=== PATIENT | female | born 1950 | race Caucasian/White ===

== ENCOUNTER 2019-05-12 05:58 | Observation (INO) | payer OTHER ==
[~2019-05-12] VITALS: Ht 165.1 cm; Wt 100.5 kg
[2019-05-12 06:29] VITALS: BP 145/72
[2019-05-12 07:01] VITALS: BP 145/72
[2019-05-12] MEDS ORDERED: LISINOPRIL40 MG PO (11:23)
[2019-05-12] MEDS ORDERED: AMLODIPINE BESY10 M2 PO (11:23)
[2019-05-12] MEDS ORDERED: ASPIR 8181 MG PO (11:23)
[2019-05-12] MEDS ORDERED: FISH OIL 1,0001 EAC1 PO (11:23)
[2019-05-12] MEDS ORDERED: ZOCOR20 MG PO (11:27)
[2019-05-12] MEDS ORDERED: PLAQUENIL200 MG PO (11:27)
[2019-05-12] MEDS ORDERED: PEPCID20 MG PO (11:27)
[2019-05-12] MEDS ORDERED: AZULFIDINE500 MG PO (11:27)
[2019-05-12] MEDS ORDERED: ESTRACE1 MG PO (11:28)
[2019-05-12] MEDS ORDERED: SOMA350 MG PO (11:28)
[2019-05-12] MEDS ORDERED: LYRICA75 M1 PO (11:28)
[2019-05-12] MEDS ORDERED: DIPHENHYDRAMINE50 MG PO (11:28)
[2019-05-12] MEDS ORDERED: NOR10T PO (11:28)
[2019-05-12] MEDS ORDERED: GLUCOTEN CAPLE1 EACH PO (11:29)
[2019-05-12] MEDS ORDERED: ECHINACEA400 MG PO (11:29)
--- NOTE | 2019-05-12 12:54 | NUR ---
RECEIVED PATIENT FROM RECOVERY, AWAKE/ALERT, REPORT PAIN 4/10 TO RT KNEE. RT KNEE INCISION COVER WITH PERINEO DRESSING AND POLAR CARE ON TOP. NO BLEEDING NOTED, RLLE ELEVATED ON PILLOWS. IV TO RH INTACT AND SL NOTED. PATIENT ABLE TO WIGGLES TOES TO RLE. PULSES STRONG. CALL LIGHT WITHIN REACH. FAMILY MEMBERS AT BEDSIDE, PREOP DEPART. BRINGS PATIENT BELONGINGS PLACE IN CLOSE NEST TO PATIENT.
[2019-05-12 13:10] VITALS: BP 132/68
--- NOTE | 2019-05-12 13:17 | NUR ---
PATIENT SAT UP IN BED EATING, TORADOL 15MG IVP GIVEN TO RH IV PATENT. PT IS HERE TO GET PATIENT UP TO BATHROOM. PATIENT DON'T WANT BEDPAN.
--- NOTE | 2019-05-12 13:51 | NUR ---
PATIENT UP WITH PT TO BATHROOM, VOIDED W/O DIFFICULTY. PATIENT AMBULATED WITH PT IN HALLWAY W/ WALKER MORE 30 FT AND TOLERATED. PAIN IS 2/10. CONT TO MONITOR.
--- NOTE | 2019-05-12 14:55 | NUR ---
PATIENT RESTING IN BED NO COMPLAIN AT THIS TIME, GAVE WARM BLANKET PER REQUEST. ANCEF 2GM IVPB INFUSING TO RH IV PATENT, IVF NS AT 80ML/HR CONTINUOUS ORDERED. CALL LIGHT WITHIN REACH. NEEDS MET.
--- NOTE | 2019-05-12 16:00 | NUR ---
ASSISTING PATIENT TO BATHROOM WITH WALKER MIN ASSIST PATIENT'S GAIT VERY STEADY AND TOLERATED WELL, BACK TO BED PATIENT WANT TO SIT UP AT SIDE OF BED FOE AWHILE. FRIEND AT BEDSIDE. INSTRUCT PATIENT TO CALL WHEN READY TO GO BACK TO BED.
[2019-05-12 17:15] VITALS: BP 136/54
--- NOTE | 2019-05-12 18:10 | NUR ---
ASSISTING PATIENT UP TO BATHROOM AND BACK TO BED, VOIDED. MEDICATED FOR 5/10 PAIN TO RLE WITH NORCO 2 TABS PO. BLADDER SCAN PERFORMED 108ML RESIDUAL AFTER VOID. CHANGE ICE TO [facility]. BLE ELEVATED. FAMILY MEMBERS AT BEDSIDE, CONT TO MONITOR.
[2019-05-12 19:50] VITALS: BP 129/50
--- NOTE | 2019-05-12 20:18 | NUR ---
PT IS A/O X4. PT BREATHING IS EVEN AND UNLABORED. NO RESP DISTRESS NOTED. PT LAST BOWEL MOVEMENT WAS ON 05/11 AND HAS VOIDED.PT BOWEL SOUNDS ARE ACTIVE. PT COMPLAINS OF A PAIN OF 2/10 AT THIS TIME. PT WILL RECIEVE MED FOR THIS. 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 DRESSING TO SURGICAL SITE IS INTACT AND DRY, NO DRAINAGE NOTED. PT HAS POLAR ICE TO SURGICAL WOUND, BUCKET OF ICE CHANGED EARLIER BY AM NURSE. PT IS ABLE TO WIGGLE TOES.PT HAS BLE NERVE DAMAGE. PT PUSLES ARE [place].PT HAS CHRONIC NUMBNESS TO THE BLE , STATES SENSATION OF SOARNESS AND TINGLING. WILL CONTINUE TO MONITOR.
--- NOTE | 2019-05-12 20:22 | NUR ---
PATIENT ASSISTED OOB TO THE BATHROOM FOR HER NECESSITIES, AMBULATED WITH WALKER, TOLERATED WITH SLOW STEADY GAIT.
--- NOTE | 2019-05-12 21:21 | NUR ---
SCEDULED MEDS GIVEN. PT INFORMED OF EACH MED ACTION PRIOR TOOK PILLS WELL.
[2019-05-12 21:25] VITALS: BP 120/53
--- NOTE | 2019-05-12 23:16 | NUR ---
ASSISTED OOB TO THE BATHROOM EARLIER WITH 2 PERSON ASSIST, AMBULATED WITH AID OF WALKER WITH SLOW STEADY GAIT, VOIDED WITH OUT DIFF ASSISTED BACK AFTERWARDS, ELEVATED RT LEG ON A PILLOW, POLAR CONTAINED REFILLED WITH ICE. PATIENT COMPLAINED OF RT KNEE PAIN RATED AT 4/10 WILL MONITOR.
--- NOTE | 2019-05-12 23:28 | NUR ---
PATIENT COMPLAINED OF RT KNEE PAIN RATED AT 7-8/10 THROBBING . MEDICATED PRN. MADE COMFORTABLE IN BED . WILL MONITOR EFFECTIVENESS IF PAIN MED.
--- NOTE | 2019-05-13 02:30 | NUR ---
ASSISTED OUT OF BED TO THE BATHROOM WITH WALKER. VOIDED AND ASSISTED BACK.
--- NOTE | 2019-05-13 03:54 | NUR ---
PT IS AWAKE WITH INTERVALS OF SLEEP. PT RESPONDS TO VERBAL COMMANDS. PT IS C/O OF PAIN, WILL MEDICATE PER MD ORDER. WILL CONTINUE TO MONITOR.
--- NOTE | 2019-05-13 04:18 | NUR ---
PT C/O PAIN 06/10. PT RECIEVED DILAUDID X1. WILL REASSES.
--- NOTE | 2019-05-13 05:35 | NUR ---
PT IS SLEPT THROUGH SHORT INTERVALS OF THE NIGHT, PT C/O OF NOT BEING ABLE TO SLEEP. PT WAS C/O OF PAIN AT SURGICAL SITE, MEDS WERE GIVEN. PT RECEIVED DILAUDID X2. PT BREATHING IS EVEN AND UNLABORED. PT IS ABULATORY WITH WALKER. IV ON RH CDI. PT IS COOPERATIVE WITH NURSING CARE.
--- NOTE | 2019-05-13 05:56 | NUR ---
PT RECEIVED 6 AM MED. PT TOLERATED WELL TO MEDICATION ADMINISTRATION.
[2019-05-13 06:10] LABS: BASOPHIL % 0.5 % (0-2); PLATELET COUNT 237 x10^3mcL (130-400); RED CELL DISTRIBUTION WIDTH 12.7 % (11.5-14.5)
--- NOTE | 2019-05-13 06:16 | NUR ---
HAD REFILLED POLAR CONTAINER WITH ICE 4X. PATIENT SLEPT OFF AND ON DURING THE SHIFT, WAS MEDICATED PRN AND RECEIVED DESIRED PAIN GOAL. WILL ENDORSE CONITNUITY OF CARE TO INCOMING NURSE.
[2019-05-13 06:29] VITALS: BP 120/55
[2019-05-13 06:32] LABS: CALCIUM 8.7 mg/dL (8.5-10.1); CARBON DIOXIDE 30.6 mmol/L (21-32); CHLORIDE SERUM 107 mmol/L (98-107); CREATININE SERUM 0.5 mg/dL (0.6-1.0); GLUCOSE SERUM 107 mg/dL (74-106); POTASSIUM SERUM 4.4 mmol/L (3.5-5.1); SODIUM SERUM 143 mmol/L (136-145)
--- NOTE | 2019-05-13 07:28 | NUR ---
HAND OF REPORT GIVEN TO AM NURSE CHET RN. ALL QUESTIONS AND CONCERNS ANSWERED.
--- NOTE | 2019-05-13 07:35 | NUR ---
RECEIVED PT IN BED. ASSESSED AND DOCUMENTED. DENIES PAIN THIS TIME, SLEEPING. SAFTEY PRECAUTIONS ARE IN PLACE. WILL MONITOR.
[2019-05-13 09:48] VITALS: BP 137/53
--- NOTE | 2019-05-13 10:36 | NUR ---
PT C/O RT KNEE PAIN, AT THE INCISION SITE,8/10 WHEN SHE TRY TO GET OUT OF BED FOR TO USE RESTROOM. ADMINISTERED DILUDID 1MG IV ORDERED AND REASSSESSED NOW AND PT IS SLEEPING. STABLE.
--- NOTE | 2019-05-13 14:55 | NUR ---
PT IS SLEEPING , STABLE.
[2019-05-13 16:50] VITALS: BP 128/48
[2019-05-13] MEDS ORDERED: ASPIR 8181 MG PO (18:11)
[2019-05-13] MEDS ORDERED: COLACE100 MG PO (18:12)
[2019-05-13] MEDS ORDERED: CIPRO500 MG PO (18:15)
--- NOTE | 2019-05-13 18:30 | NUR ---
PT IS STABLE. CAME AND SPOKE WITH PT. HE SAID HE MAY DISCHARGE HER TODAY. PT DENIES PAIN THIS TIME. STABLE.
--- NOTE | 2019-05-13 19:15 | NUR ---
RECEIVED PT IN BED AWAKE, ALERT,ORIENTED X4. FAMILY AT BEDSIDE. PT FOR D/C HOME TONIGHT AND WAITING FOR D/C INSTRUCTIONS. SHE HAS NO C/O PAIN AT THIS TIME. RT KNEE W/ DRESSING CDI. ICE PACK IN PLACE. CALL LIGHT W/IN REACH.
[2019-05-13 19:24] VITALS: BP 128/48
--- NOTE | 2019-05-13 19:25 | NUR ---
PT RESTING IN BED COMFORTABLY. STABLE. DENIES ANY PAIN. GAVE REPORT TO SUPERVISOR CD AREA NURSE. PT WILL DC HOME TODAY.
--- NOTE | 2019-05-13 19:45 | NUR ---
DISCHARGE INSTRUCTIONS EXPLAINED TO PT. PRESCRIPTION GIVEN. BELONGINGS LIST REVIEWED W/ PT. ALL PAPAERS SIGNED BY PT. SHE VERBALIZED UNDERSTANDING OF INSTRUCTIONS GIVEN. HL TO RT HAND REMOVED.
--- NOTE | 2019-05-13 20:28 | NUR ---
PT TAKEN DOWN BY SUPERVISOR AGENCY APPOINTMENTS VIA WHEELCHAIR. PT ACCOMPANIED BY DAUGHTER.
--- NOTE | 2019-05-14 07:26 | NUR ---
PHYSICAL THERAPY DAILY NOTES CO-SIGN All documentation done by the Clinical Trainer for 05/14/19 has been reviewed. I agree with the documentation. Reviewed/Co-Signed by: Rissa Finch PT Documentation Done by:CALISTA MERINO PTA FOR 05/13/19
== END 2019-05-13 20:27 | disposition home or self-care (01) | DRG 470 ==
LOC: MU 05:58 → DU 07:30 → MU 12:41
PROVIDERS: ADMIT Orthopaedic Surgery
PROC: 0SRC0J9 Replacement of Right Knee Joint with Synthetic Substitute, Cemented, Open Approach (ICD-10-PCS; principal; 2019-05-12 07:30)
DX: M17.11 Unilateral primary osteoarthritis, right knee (principal); I10 Essential (primary) hypertension; K21.9 Gastro-esophageal reflux disease without esophagitis; E66.9 Obesity, unspecified; Z68.36 Body mass index [BMI] 36.0-36.9, adult
CPT/HCPCS: 97110-GP; 97116-GP; 97530-GP; C1713; C1776; G0378; J0690; J0696; J1100; J1170; J1885; J2270; J2405; J2704; J3010; J3490; J7030; J7120